=== PATIENT | male | born 1990 | race African-American/Black ===

== ENCOUNTER 2023-12-26 23:22 | Emergency (ER) | payer OTHER ==
[~2023-12-26] VITALS: Ht 175.3 cm; Wt 80.0 kg
[2023-12-26 23:22] VITALS: TEMP 97.6
[2023-12-26] MEDS ORDERED: fentaNYL 50 MCG/ML 2 ML VIAL IV ONE (23:27)
[2023-12-26] MEDS ORDERED: Midazolam 2 MG/2 ML VIAL IV ONE ×2 (23:29→23:45)
[2023-12-26 23:38] LABS: BASO % 0.2 % (0.0-2.0); EOS # 0.1 K/mm3 (0.0-0.7); EOS % 0.6 % (0.0-4.0); GRAN # 8.2 K/mm3 (1.4-6.5); GRAN % 57.6 % (42.2-75.2); HEMATOCRIT 39.2 % (42.0-52.0); HEMOGLOBIN 13.8 g/dl (13.5-18.0); LYMPH # 5.2 K/mm3 (1.2-3.4); LYMPH % 36.4 % (20.0-51.0); MEAN CELL VOLUME 83 fl (80.0-100.0); MEAN CORPUSCULAR HEMOGLOBIN 29 pg (27-31); MEAN CORPUSCULAR HGB CONC 35 g/dl (33.0-37.0); MEAN PLATELET VOLUME 9.2 fl (7.4-10.4); MONO # 0.7 K/mm3 (0.1-0.6); PLATELET COUNT 292 K/mm3 (130-400); RED BLOOD COUNT 4.74 M/mm3 (4.20-5.60); REDCELL DISTRIBUTION WIDTH-CV 12.8 % (11.5-14.5)
[2023-12-26 23:43] LABS: PARTIAL THROMBOPLASTIN TIME 28.5 SECONDS (26.0-37.0)
[2023-12-26] MEDS ORDERED: NS 1,000 ML IV ONE (23:45)
[2023-12-26 23:53] LABS: ALBUMIN 4.1 g/dL (3.5-5.0); BILIRUBIN,TOTAL 0.7 mg/dL (0.2-1.2); CALCIUM 9.6 mg/dL (8.4-10.2); CREATININE, serum 1.14 mg/dL (0.72-1.25); POTASSIUM 3.4 mEq/L (3.5-4.5); TOTAL PROTEIN 7.2 g/dl (6.2-8.1)
[2023-12-27] MEDS ORDERED: Tranexamic Acid 1,000 MG in NS 100 ML IV SCH (00:15)
[2023-12-27] MEDS ORDERED: Rocuronium 50 MG/5 ML Multi-Dose VIAL IV ONE (00:23)
[2023-12-27] MEDS ORDERED: Etomidate 20 MG/10 ML VIAL IV ONE (00:23)
[2023-12-27 00:57] LABS: ARTERIAL BLD GAS O2 SATURATION 99.5 % (92-100); ARTERIAL BLD GAS TCO2 CT 19.4; ARTERIAL BLOOD GAS HCO3 18.6 meq/L (22-26); ARTERIAL BLOOD GAS pH 7.46 (7.35-7.45)
[2023-12-27] MEDS ORDERED: fentaNYL 100 ML IV ONE (01:15)
[2023-12-27 01:38] LABS: COLLECTION METHOD CLEAN CATCH
[2023-12-27 01:56] LABS: TRICYCLIC ANTIDEPRESS URINE NEGATIVE (NEGATIVE)
--- NOTE | 2023-12-27 02:10 | NUR ---
RT arrived to ER at 0022 to assist with intubation. Patient intubated with a 7.5 ETT at 23cm at the teeth. Color change noted on CO2 detector and bilateral breath sounds. The patient was bagged from approximately 0040 to approximately 0135. Patient placed on transport vent after bagging. Saturations were maintained in the 90's.
[2023-12-27 02:21] LABS: URINE APPEARANCE CLEAR (CLEAR/HAZY); URINE BLOOD NEGATIVE (NEGATIVE); URINE COLOR YELLOW (YELLOW); URINE GLUCOSE NEGATIVE (NEGATIVE); URINE KETONE NEGATIVE (NEGATIVE); URINE NITRATE NEGATIVE (NEGATIVE); URINE PROTEIN(semi-quant) 1+ (NEGATIVE); URINE UROBILINOGEN 0.2 E.U/dL (0.2-1.0)
[2023-12-27] MEDS ORDERED: Midazolam 2 MG/2 ML VIAL IV ONE (23:45)
[2023-12-31 01:30] VITALS: BP 126/72; PULSE 123
== END 2023-12-27 01:53 | disposition short-term general hospital (02) ==
LOC: COL.ER 23:22
PROVIDERS: Internal Medicine
DX: S02.32XA Fracture of orbital floor, left side, initial encounter for closed fracture (principal); S06.9X2A Unspecified intracranial injury with loss of consciousness of 31 minutes to 59 minutes, initial encounter; H11.33 Conjunctival hemorrhage, bilateral; F10.129 Alcohol abuse with intoxication, unspecified; Y90.8 Blood alcohol level of 240 mg/100 ml or more; Y04.2XXA Assault by strike against or bumped into by another person, initial encounter
CPT/HCPCS: J2250; J2704; J3010; J7030